=== PATIENT | male | born 1970 | race Caucasian/White ===

== ENCOUNTER 2023-02-24 07:07 | Outpatient (CLI) | payer OTHER ==
[~2023-02-24 07:07] MED LIST: ATORVASTATIN CA10 MG PO; LOPRESSOR25 MG PO; METOPROLOL ER-1 EAC1 PO; PLAVIX75 MG PO
== END 2023-02-24 07:13 | disposition home or self-care (01) ==
LOC: NUCLEAR 07:07
PROVIDERS: ATTEND Internal Medicine Cardiovascular Disease
DX: I25.2 Old myocardial infarction (principal); I11.9 Hypertensive heart disease without heart failure
CPT/HCPCS: 78452; 93017; A9500